=== PATIENT | female | born 1970 | race Caucasian/White ===

== ENCOUNTER → 2024-11-13 07:32 | Outpatient (REF) | payer BC, SELFPAY | LOC: RAD 07:32 | PROVIDERS: ATTENDING PHYSICIAN Family Medicine | DX: G58.9 Mononeuropathy, unspecified (principal); M54.89 Other dorsalgia | CPT/HCPCS: 72050 ==

== ENCOUNTER → 2024-11-15 14:44 | Outpatient (REF) | payer BC, SELFPAY | LOC: EMG 14:44 | PROVIDERS: ATTENDING PHYSICIAN Family Medicine | DX: G58.9 Mononeuropathy, unspecified (principal); M54.89 Other dorsalgia; R20.0 Anesthesia of skin | CPT/HCPCS: 95886; 95909 ==

== ENCOUNTER 2025-02-02 06:10 | Day surgery (SDC) | payer BC, SELFPAY ==
[2025-01-26 07:14] VITALS: BMI 18.9
[2025-01-26 08:58] LABS: Hematocrit 38.5 % (37.0-47.0); Hemoglobin 12.8 g/dL (12.0-16.0); Mean Corp Hgb Conc. 33.2 g/dL (33.0-37.0); Mean Corpuscular Volume 93.2 fL (81.0-99.0); Platelet Count 212 10^3/uL (130-400); Red Cell Dist. Width 12.6 % (11.5-14.5)
[2025-01-26 09:12] LABS: ALT (SGPT) 18 U/L (0-35); AST (SGOT) 18 U/L (14-36); Albumin 4.4 g/dl (3.5-5.0); Alkaline Phosphatase 61 U/L (38-126); Blood Urea Nitrogen 12 mg/dl (7-17); Calcium 9.0 mg/dl (8.4-10.2); Carbon Dioxide 24 mmol/L (22-30); Chloride 111 mmol/L (98-107); Estimated Creatinine Clearance 94 ml/min; Glucose 74 mg/dl (70-99); Potassium 4.4 mmol/L (3.5-5.1); Sodium 141 mmol/L (135-145); Total Protein 7.0 g/dl (6.3-8.2); eGFR > 60.00
[2025-01-27 15:31] VITALS: BMI 18.9
[2025-02-02] VITALS (11 sets, daily range): BP systolic 125–159; BP diastolic 72–94; BMI 18.9
[2025-02-02] MEDS: LYRICA 150 MG PO (08:45)
[2025-02-02] MEDS: TYLENOL 1000 MG PO (08:45)
[2025-02-02] MEDS: CELEBREX 200 MG PO (08:46)
[2025-02-02] MEDS: METHOCARBAMOL 1500 MG PO (08:46)
[2025-02-02] MEDS: NORMOSOL-R/PLASMALYTE-A 1000 IV (09:02)
[2025-02-02] MEDS: DILAUDID 0.5 MG IV (11:14)
[2025-02-02] MEDS: DILAUDID 0.25 MG IV (11:45)
== END 2025-02-02 13:25 | disposition home or self-care (01) ==
LOC: SDS 06:10
PROVIDERS: ATTENDING PHYSICIAN Orthopaedic Surgery Orthopaedic Surgery of the Spine; FAMILY PHYSICIAN Family Medicine
DX: M50.223 Other cervical disc displacement at C6-C7 level (principal); M48.02 Spinal stenosis, cervical region
CPT/HCPCS: 22554; 22853; 20930; 22845; C1713; C1776; 36415; 72020; 80053; 85027; 86850; 86900; 86901; 87070; 93005